=== PATIENT | female | born 1970 | race African-American/Black ===

== ENCOUNTER 2024-06-16 18:52 | Emergency (ER) | payer OTHER ==
[2024-06-16 19:48] VITALS: PULSE 103; RESP 16; O2SAT 94
== END 2024-06-16 21:36 | disposition left against medical advice (07) ==
LOC: ER 18:52
DX: M54.9 Dorsalgia, unspecified (principal); Z53.21 Procedure and treatment not carried out due to patient leaving prior to being seen by health care provider